=== PATIENT | male | born 1995 | race African-American/Black ===

== ENCOUNTER 2022-09-24 09:41 | Day surgery (SDC) | payer OTHER, SELFPAY ==
[2022-09-24 09:54] VITALS: BMI 24.7
[2022-09-24 10:12] VITALS: BP 107/54; PULSE 71; RESP 16; TEMP 36.9; O2SAT 94
[2022-09-24] MEDS: SODIUM CHLORIDE 0.9 % (FLUSH) 10 ML SYRINGE IVF (10:24)
[2022-09-24] MEDS: LACTATED RINGERS 1000 ML 1,000 ML 100 ML IV (10:24)
--- NOTE | 2022-09-24 10:35 | CRLHL7_ITS ---
For Patients: As a result of the Century Cures Act, medical imaging exams and procedure reports are released immediately into your electronic medical record. You may view this report before your referring provider. If you have questions, please contact your health care provider. Indication: Port-A-Cath insertion Technique: Single fluoroscopic image of the chest. Fluoroscopic time 111.5 seconds. IMPRESSION: Fluoroscopic guidance for Port-A-Cath placement. Dictated by Eyal Alonzo MD @ 09/24/2022 12:45:56 PM (Electronically Signed)
[2022-09-24] MEDS: CEFAZOLIN 2 GM INJ IVP (11:00)
--- NOTE | 2022-09-24 11:01 | PM.GSPRC ---
Operative Note Date of procedure: 09/24/22 Pre-op diagnosis: 1) Sickle cell anemia, on infusion therapy 2) Difficult IV access Post-op diagnosis: Same Type of Procedure: Right IJ port placement with ultrasound and fluoroscopic guidance Indications: The patient is a 26-year-old male has sickle cell anemia. He is undergoing infusions monthly and also requires blood draws frequently. He has had significant issues more recently with IV access. His sister has had a similar disease course and has a port placed. After discussion of risks and benefits, he has requested port placement to help with his medical treatment. Procedure Description: After discussing the risks and benefits of the procedure, the patient signed informed consent.? The operative site was marked and the patient was brought to the operating room and placed on the operating table in supine position.? Care was taken to pad the patient's pressure points.?? The patient was then given sedation by anesthesia.?? The operative site was then prepped and draped in the usual sterile fashion.? A time-out was then performed. The patient's right internal jugular vein was visualized using ultrasound. Local anesthetic was injected into the skin overlying the vein. This was accessed percutaneously using ultrasound guidance. Using Seldinger technique, a guidewire was threaded through the needle. A skin ty was made around the wire. Next, local anesthetic was injected into the skin below the clavicle and along the proposed tract to the neck incision. A skin incision was then made with a 15 blade and a pocket created in the subcutaneous tissue with cautery. A tunneler was then used to thread the catheter from the chest wall pocket to the neck incision. Once this was done fluoroscopy was brought into the field. Over the wire the tract was dilated using fluoroscopy. The wire and the dilator were then removed leaving the sheath in the vein. Through this, the catheter was threaded. Using fluoroscopy, the catheter was positioned into the distal SVC. The catheter was noted to flush and aspirate easily. The catheter was then connected to the port. The port was placed in the pocket and secured in place with 2 0 Prolene sutures. It was noted to flush and aspirate easily. This was then locked with heparinized saline. The skin was closed with absorbable suture. Sterile dressings were applied. Instrument sponge and needle counts were correct at the end of the case. The patient was woken and taken to the recovery area in stable condition. ? The patient tolerated the procedure well. Findings: Right IJ power port placed in the low SVC Implants: Power port Anesthesia: GETA Surgeon: Briana Jalloh MD Estimated blood loss (mL): 5 Condition: stable Disposition: same day
--- NOTE | 2022-09-24 11:29 | W.ANESCHARGE ---
Anesthesia Charges Start Date/Time Anesthesia Start Date: 09/24/22 Anesthesia Start Time: 10:58 Stop Date/Time Anesthesia Stop Date: 09/24/22 Anesthesia Stop Time: 12:13
[2022-09-24] MEDS: 0.9% SODIUM CHL 50 ML VIAL INJECTION (11:45)
[2022-09-24] MEDS: HEPARIN 500 UNIT/5 ML SYRINGE IVF (11:45)
[2022-09-24] MEDS: LIDOCAINE 1% MDV 20 ML INJECTION (11:50)
[2022-09-24] MEDS: BUPIVACAINE 0.5% 30 ML INJECTION (11:50)
--- NOTE | 2022-09-24 11:59 | CRLHL7_ITS ---
For Patients: As a result of the Cures Act, medical imaging exams and procedure reports are released immediately into your electronic medical record. You may view this report before your referring provider. If you have questions, please contact your health care provider. Indication: Port placement Technique: Chest one view IMPRESSION: Right Port-A-Cath is present in the SVC. No pneumothorax. No pleural effusion. Dictated by Eyal Aolnzo MD @ 09/24/2022 12:47:37 PM (Electronically Signed)
[2022-09-24 12:12] VITALS: BP 116/71; PULSE 75; RESP 16; TEMP 36.5; O2SAT 94
--- NOTE | 2022-09-24 12:17 | W.ANESCHARGE ---
Anesthesia Charges Start Date/Time Anesthesia Start Date: 09/24/22 Anesthesia Start Time: 10:58 Stop Date/Time Anesthesia Stop Date: 09/24/22 Anesthesia Stop Time: 12:13
[2022-09-24 12:30] VITALS: BP 112/64; PULSE 72; RESP 16; O2SAT 92
[2022-09-24 12:54] VITALS: BP 115/66; PULSE 65; RESP 16; O2SAT 92
== END 2022-09-24 12:58 | disposition home or self-care (01) ==
PROVIDERS: Visit Provider Surgery
PROC: (CPT 36561; principal; 2022-09-24 11:45)
DX: Z45.2 Encounter for adjustment and management of vascular access device (principal); D57.1 Sickle-cell disease without crisis
CPT/HCPCS: 36561; 00532; 71045; 76000; C1788; J0690; J1642; J2250; J2405; J2704; J3010; J3490; J7120

== ENCOUNTER 2022-10-16 08:00 | Outpatient (RCR) | payer OTHER, SELFPAY ==
[2022-05-08 10:10] VITALS: BP 109/64; PULSE 78; RESP 18; TEMP 37.1; O2SAT 95
[2022-05-08 12:42] VITALS: BP 118/70; PULSE 84; RESP 16; TEMP 36.8; O2SAT 96
[2022-05-08 13:02] VITALS: BP 117/71; PULSE 82; RESP 18; TEMP 36.9; O2SAT 95
[2022-05-08 13:47] VITALS: BP 107/65; PULSE 85; RESP 18; TEMP 37; O2SAT 97
[2022-05-08 13:48] VITALS: BP 102/63; PULSE 71; RESP 16; TEMP 36.8; O2SAT 96
[2022-05-08 15:12] VITALS: BP 105/63; PULSE 80; RESP 16; TEMP 37; O2SAT 96
--- NOTE | 2022-06-26 12:03 | ONC.NURNOTE ---
2 units RBCs ordered. Confirmed that patient will be coming in around 5pm to the lab for a type and screen today. Will receive transfusion tomorrow at 10am.
[2022-06-27] VITALS (11 sets, daily range): BP systolic 92–119; BP diastolic 47–74; PULSE 68–79; RESP 16–18; TEMP 36.7–37.3; O2SAT 93–100
[2022-06-27] MEDS: 0.9 % SODIUM CHLORIDE 250 ml IV ×2 (10:45→13:22)
--- NOTE | 2022-08-13 11:10 | ONC.NURNOTE ---
Received call from pt returning a call to [facility] to set up port placement; reviewed that would be coordinated the general surgeons. Research Administrator called [facility] to update contact numbers [phone], f: [phone] and asked them to reach out to pt to confirm f/u plan.
[2022-09-21 08:04] VITALS: BP 89/43; PULSE 95; RESP 20; TEMP 36.9; O2SAT 87
[2022-09-21 09:22] VITALS: BP 97/58; PULSE 72; RESP 14; TEMP 36.9; O2SAT 92
[2022-09-21 09:39] VITALS: BP 101/60; PULSE 77; RESP 14; TEMP 36.6; O2SAT 91
[2022-09-21 09:40] VITALS: BP 97/58; PULSE 82; RESP 14; TEMP 36.8; O2SAT 92
[2022-09-21 10:24] VITALS: BP 97/59; PULSE 80; RESP 14; TEMP 36.6; O2SAT 91
[2022-09-21] MEDS: 0.9 % SODIUM CHLORIDE 250 ml IV (11:03)
[2022-09-21 12:00] VITALS: BP 112/62; PULSE 78; RESP 14; TEMP 36.6; O2SAT 97
--- NOTE | 2022-09-21 14:40 | ONC.NURNOTE ---
LS clear. [facility]arts[facility] regular s1s2 before and after infusion.
[2022-10-16 08:15] VITALS: BP 100/50; PULSE 76; RESP 18; TEMP 36.6; O2SAT 93
[2022-10-16 08:28] VITALS: BP 100/50; PULSE 76; RESP 18; TEMP 36.6; O2SAT 93
[2022-10-16 08:46] VITALS: BP 89/49; PULSE 70; RESP 18; TEMP 36.9; O2SAT 94
[2022-10-16 09:31] VITALS: BP 87/44; PULSE 76; RESP 18; TEMP 36.4; O2SAT 95
[2022-10-16 10:05] VITALS: BP 92/36; PULSE 62; RESP 16; TEMP 36.4; O2SAT 97
[2022-10-16 10:30] VITALS: BP 94/36; PULSE 62; RESP 16; TEMP 36.2; O2SAT 95
== END 2022-11-04 23:59 | disposition home or self-care (01) ==
LOC: CCIC 08:00
PROVIDERS: Visit Provider Clinical Nurse Specialist
DX: D57.1 Sickle-cell disease without crisis (principal)
CPT/HCPCS: 36415; 36430; 36591; 86850; 86900; 86901; 86922; J7050; P9016

== ENCOUNTER 2023-05-10 09:30 | Outpatient (RCR) | payer OTHER, SELFPAY ==
[2022-11-16 11:06] VITALS: BP 113/64; RESP 14; TEMP 37.1
[2022-11-16 11:24] VITALS: BP 106/56; PULSE 80; RESP 16; TEMP 37.1; O2SAT 91
[2022-11-16 12:08] VITALS: BP 94/50; PULSE 79; RESP 14; TEMP 36.4; O2SAT 91
[2022-11-16 12:09] VITALS: BP 95/56; PULSE 77; RESP 14; TEMP 36.6; O2SAT 91
[2022-11-16 14:00] VITALS: BP 100/60; PULSE 78; RESP 16; TEMP 36.9; O2SAT 92
[2022-12-14 08:21] VITALS: BP 110/72; PULSE 83; RESP 16; TEMP 36.8; O2SAT 94
[2022-12-14 08:40] VITALS: BP 115/74; PULSE 79; RESP 16; TEMP 36.9; O2SAT 95
[2022-12-14 08:41] VITALS: BP 108/68; PULSE 85; RESP 18; TEMP 36.9; O2SAT 92
[2022-12-14 09:25] VITALS: BP 107/71; PULSE 88; RESP 16; TEMP 36.8; O2SAT 91
[2022-12-14 10:25] VITALS: BP 111/68; PULSE 84; RESP 18; TEMP 37.2; O2SAT 94
[2023-01-04] MEDS: SODIUM CHLORIDE 0.9 % (FLUSH) 10 ML SYRINGE IVF (15:52)
[2023-01-04] MEDS: HEPARIN 500 UNIT/5 ML SYRINGE IVF (15:52)
[2023-01-07 12:25] VITALS: BP 100/55; PULSE 84; RESP 16; TEMP 37.6; O2SAT 89
[2023-01-07 12:45] VITALS: BP 93/54; PULSE 82; RESP 18; TEMP 37.3; O2SAT 89
[2023-01-07 13:07] VITALS: BP 93/49; PULSE 78; RESP 16; TEMP 37.1; O2SAT 89
[2023-01-07 13:52] VITALS: BP 96/51; PULSE 72; RESP 16; TEMP 37.2
[2023-01-07 15:11] VITALS: BP 109/63; PULSE 78; RESP 16; TEMP 37.3
[2023-01-07 15:42] VITALS: BP 101/62; PULSE 70; RESP 16; TEMP 37.3; O2SAT 93
[2023-01-07] MEDS: HEPARIN 500 UNIT/5 ML SYRINGE IVF (15:49)
[2023-01-07] MEDS: SODIUM CHLORIDE 0.9 % (FLUSH) 10 ML SYRINGE IVF (15:50)
[2023-01-07] MEDS: 0.9 % SODIUM CHLORIDE 250 ml IV (15:50)
[2023-02-05 09:20] VITALS: BP 105/66; PULSE 90; RESP 18; TEMP 37.2; O2SAT 92
[2023-02-05 11:29] VITALS: BP 98/54; PULSE 90; RESP 18; TEMP 36.9; O2SAT 92
[2023-02-05 11:46] VITALS: BP 99/61; PULSE 82; RESP 18; TEMP 36.6; O2SAT 93
[2023-02-05 12:31] VITALS: BP 97/61; PULSE 82; RESP 20; TEMP 37.4; O2SAT 91
[2023-02-05 13:25] VITALS: BP 106/67; PULSE 81; RESP 20; TEMP 36.4; O2SAT 93
[2023-02-05 14:03] VITALS: BP 108/73; PULSE 90; RESP 16; TEMP 36.6; O2SAT 94
[2023-02-05] MEDS: HEPARIN 500 UNIT/5 ML SYRINGE IVF (14:03)
[2023-02-05] MEDS: SODIUM CHLORIDE 0.9 % (FLUSH) 10 ML SYRINGE IVF (14:03)
[2023-03-05 11:22] VITALS: BP 110/60; PULSE 94; RESP 16; TEMP 37.2; O2SAT 88
[2023-03-05 12:03] VITALS: BP 118/60; PULSE 94; RESP 20; TEMP 37.2; O2SAT 88
[2023-03-05 12:20] VITALS: BP 94/58; PULSE 76; RESP 20; TEMP 37.3; O2SAT 91
[2023-03-05 13:05] VITALS: BP 105/57; PULSE 80; RESP 20; TEMP 37.8; O2SAT 92
[2023-03-05 14:03] VITALS: BP 107/62; PULSE 82; RESP 16; TEMP 37.9; O2SAT 92
[2023-03-05 14:36] VITALS: BP 93/48; PULSE 78; RESP 16; TEMP 37.5; O2SAT 92
[2023-03-05] MEDS: SODIUM CHLORIDE 0.9 % (FLUSH) 10 ML SYRINGE IVF (14:37)
[2023-03-05] MEDS: 0.9 % SODIUM CHLORIDE 250 ml IV (14:37)
[2023-03-05] MEDS: HEPARIN 500 UNIT/5 ML SYRINGE IVF (14:37)
--- NOTE | 2023-03-29 10:46 | ONC.NURNOTE ---
Dx: sickle cell
[2023-04-03 08:47] VITALS: BP 104/61; PULSE 68; RESP 16; TEMP 36.6; O2SAT 91
[2023-04-03 08:57] VITALS: BP 104/61; PULSE 68; RESP 18; TEMP 36.9; O2SAT 91
[2023-04-03 09:14] VITALS: BP 95/53; PULSE 72; RESP 18; TEMP 36.9; O2SAT 94
[2023-04-03 09:59] VITALS: BP 95/57; PULSE 73; RESP 18; TEMP 36.9; O2SAT 91
[2023-04-03 11:06] VITALS: BP 89/59; PULSE 69; RESP 18; TEMP 37.1; O2SAT 92
[2023-04-03 11:31] VITALS: BP 112/65; PULSE 80; RESP 18; TEMP 35.9; O2SAT 95
[2023-04-30] MEDS: SODIUM CHLORIDE 0.9 % (FLUSH) 10 ML SYRINGE IVF (16:03)
[2023-04-30] MEDS: HEPARIN 500 UNIT/5 ML SYRINGE IVF (16:03)
[2023-05-01 09:31] VITALS: BP 95/47; PULSE 76; RESP 16; TEMP 36.8; O2SAT 93
[2023-05-01] MEDS: 0.9 % SODIUM CHLORIDE 250 ml IV (09:38)
[2023-05-01 09:50] VITALS: BP 97/61; PULSE 73; RESP 16; TEMP 36.7; O2SAT 93
[2023-05-01 10:35] VITALS: BP 88/50; PULSE 70; RESP 16; TEMP 36.9; O2SAT 91
[2023-05-01 11:33] VITALS: BP 108/63; PULSE 77; RESP 18; TEMP 36.9; O2SAT 92
[2023-05-01 12:05] VITALS: BP 112/64; PULSE 75; RESP 16; TEMP 36.7; O2SAT 92
[2023-05-01] MEDS: SODIUM CHLORIDE 0.9 % (FLUSH) 10 ML SYRINGE IVF (12:10)
[2023-05-01] MEDS: HEPARIN 500 UNIT/5 ML SYRINGE IVF (12:10)
[2023-05-09] MEDS: SODIUM CHLORIDE 0.9 % (FLUSH) 10 ML SYRINGE IVF (14:20)
[2023-05-09] MEDS: HEPARIN 500 UNIT/5 ML SYRINGE IVF (14:20)
[2023-05-10 09:33] VITALS: BP 96/57; PULSE 83; RESP 16; TEMP 36.9; O2SAT 90
[2023-05-10 09:59] VITALS: BP 96/57; PULSE 83; RESP 16; TEMP 36.9; O2SAT 90
[2023-05-10] MEDS: 0.9 % SODIUM CHLORIDE 250 ml IV (10:00)
[2023-05-10] MEDS: SODIUM CHLORIDE 0.9 % (FLUSH) 10 ML SYRINGE IVF (10:00)
[2023-05-10 10:17] VITALS: BP 91/51; PULSE 83; RESP 16; TEMP 36.9; O2SAT 90
[2023-05-10 11:02] VITALS: BP 108/64; PULSE 71; RESP 18; TEMP 37.2; O2SAT 92
[2023-05-10 11:47] VITALS: BP 124/67; PULSE 74; RESP 18; TEMP 36.7; O2SAT 92
[2023-05-10 12:16] VITALS: BP 111/68; PULSE 66; RESP 18; TEMP 37.2; O2SAT 95
== END 2023-05-15 23:59 | disposition home or self-care (01) ==
LOC: CCIC 09:30
PROVIDERS: Visit Provider Clinical Nurse Specialist
DX: D57.1 Sickle-cell disease without crisis (principal)
CPT/HCPCS: 36415; 36430; 36591; 86850; 86870; 86880; 86900; 86901; 86922; 99211; J1642; J7050; P9016

== ENCOUNTER 2023-08-22 08:00 | Outpatient (RCR) | payer OTHER, SELFPAY ==
[2023-05-31 12:56] VITALS: BP 90/54; PULSE 77; RESP 16; TEMP 37.2; O2SAT 93
[2023-05-31 13:14] VITALS: BP 104/64; PULSE 73; RESP 18; TEMP 37.2; O2SAT 91
[2023-05-31 14:05] VITALS: BP 110/71; PULSE 77; RESP 16; TEMP 37; O2SAT 91
[2023-05-31 14:45] VITALS: BP 109/68; PULSE 75; RESP 18; TEMP 37; O2SAT 91
[2023-05-31 14:50] VITALS: BP 103/68; PULSE 70; RESP 16; TEMP 37; O2SAT 93
[2023-05-31] MEDS: SODIUM CHLORIDE 0.9 % (FLUSH) 10 ML SYRINGE IVF (15:15)
[2023-05-31] MEDS: HEPARIN 500 UNIT/5 ML SYRINGE IVF (15:15)
[2023-05-31 15:40] VITALS: BP 119/74; PULSE 75; RESP 16; TEMP 36.8; O2SAT 92
[2023-06-25 14:05] VITALS: BP 101/64; PULSE 72; RESP 16; TEMP 37.1; O2SAT 94
[2023-06-25 15:10] VITALS: BP 101/56; PULSE 71; RESP 18; TEMP 36.8; O2SAT 93
[2023-06-25 15:59] VITALS: BP 112/56; PULSE 71; RESP 16; TEMP 36.7; O2SAT 92
[2023-06-25] MEDS: SODIUM CHLORIDE 0.9 % (FLUSH) 10 ML SYRINGE IVF (16:12)
[2023-06-25] MEDS: HEPARIN 500 UNIT/5 ML SYRINGE IVF (16:12)
[2023-06-25 16:28] VITALS: BP 120/75; PULSE 71; RESP 16; TEMP 37; O2SAT 94
--- NOTE | 2023-08-22 08:43 | ONC.NURNOTE ---
Pt did not arrive for 0800 blood transfusion appt. [employer] called pt. He is hospitalized at [facility] for sickle cell crisis. Appt cancelled; [facility] notified.
== END 2023-11-26 23:59 | disposition home or self-care (01) ==
LOC: CCIC 08:00
PROVIDERS: Visit Provider Clinical Nurse Specialist
DX: D57.1 Sickle-cell disease without crisis (principal)
CPT/HCPCS: 36415; 36430; 36591; 86850; 86870; 86880; 86900; 86901; 86922; J1642; P9016